=== PATIENT | female | born 1965 | race Two or more races ===

== ENCOUNTER 2019-06-20 17:44 | Emergency (ER) | payer MEDICAID ==
[~2019-06-20] VITALS: Ht 154.9 cm; Wt 54.4 kg
[2019-06-20 17:50] VITALS: BP 133/64
--- NOTE | 2019-06-20 18:28 | Emergency Room Report ---
History of Present Illness General Chief Complaint: Flu Like Symptoms Source: Patient Present Illness HPI Patient is a 53-year-old female presents after increased cough and congestion. Patient reports having increased nasal congestion as well as sore throat. She reports having a nonproductive cough. She had not been vomiting. Sick contacts at home. Denies any fever. Denies any neck stiffness. Denies any urinary symptoms. Allergies: Coded Allergies: No Known Allergies (Unverified , 06/20/19) Patient History Past Medical History: see triage record Last Menstrual Period: 2016 Reviewed Nursing Documentation: PMH: Agreed; PSxH: Agreed Nursing Documentation-PMH Past Medical History: No History, Except For Hx Cardiac Problems: Yes - hypothyroidism Review of Systems All Other Systems: negative except mentioned in HPI Physical Exam Vital Signs Date Time Temp Pulse Resp B/P (MAP) Pulse Ox O2 Delivery O2 Flow Rate FiO2 06/20/19 17:50 98.2 95 20 133/64 (87) 97 Room Air Sp02 EP Interpretation: reviewed, normal General Appearance: normal inspection, well appearing, no apparent distress, alert Head: atraumatic ENT: normal ENT inspection, hearing grossly normal, normal voice Neck: normal inspection, full range of motion, supple, no bony tend Respiratory: normal inspection, lungs clear, normal breath sounds, no respiratory distress, no retraction, no wheezing Cardiovascular #1: regular rate, rhythm, no edema Gastrointestinal: normal inspection, normal bowel sounds, non tender, soft, no guarding, no hernia Genitourinary: no CVA tenderness Musculoskeletal: normal inspection, back normal, normal range of motion Neurologic: alert, motor strength/tone normal, batch analyst III-XII nml as tested, EOM palsy, oriented x3, responsive, speech normal, normal inspection Psychiatric: normal inspection, judgement/insight normal, mood/affect normal Medical Decision Making Diagnostic Impression: Primary Impression: Viral respiratory infection ER Course Patient presented for cough. Differential diagnosis included but was not limited to bronchitis, pneumonia, pulmonary embolism, pericarditis, asthma, foreign body. Patient has a benign exam and does not appear to require any imaging or laboratory testing at this time. Patient was given prescriptions for medications for symptomatic treatments. She does not appear to have any bacterial illness requiring antibiotics at this time. Patient's medications were sent to her preferred pharmacy. She is advised to return if she had any worsening condition or increased shortness of breath or or other concerns. Last Vital Signs Date Time Temp Pulse Resp B/P (MAP) Pulse Ox O2 Delivery O2 Flow Rate FiO2 06/20/19 17:50 98.2 95 20 133/64 (87) 97 Room Air Status: improved Disposition: HOME, SELF-CARE Condition: Stable Rey Del Angel MD Jun 20, 2019 18:28
[2019-06-20] MEDS ORDERED: ROBAFEN DM CGH118 ML PO (18:30)
[2019-06-20] MEDS ORDERED: NAPROXEN375 M2 ORAL (18:30)
[2019-06-20 18:50] VITALS: BP 133/64
== END 2019-06-20 18:50 | disposition home or self-care (01) ==
LOC: EMR 18:10
DX: B34.9 Viral infection, unspecified (principal)
CPT/HCPCS: 99282